=== PATIENT | female | born 1980 | race Caucasian/White ===

== ENCOUNTER 2023-01-13 09:50 | Emergency (ER) | payer OTHER ==
[~2023-01-13] VITALS: Ht 167.6 cm; Wt 63.0 kg
[2023-01-13 09:54] VITALS: BP_SYST 117
--- NOTE | 2023-01-13 09:59 | NUR ---
LEFT HAND PAIN 03/24 SINCE 2 WEEKS AGO, IBUPROFEN,ADVIL, ICE NOT HELPING
--- NOTE | 2023-01-13 10:06 | NUR ---
Patient to ER bed 08 to gown for evaluation. Side rails up.
--- NOTE | 2023-01-13 10:08 | NUR ---
ER at bedside examining patient.
--- NOTE | 2023-01-13 10:14 | NUR ---
Pt BIB self. C/O left thumb pain radiating thru forearm to shoulder. 03/24. left hand toter unable to close without discomfort. cap return less than 3. onset of 2 weeks with no relief. Pt denies trauma to hand. Denies NVD. PERRLA. skin dry and intact. Pt has full ROM to left arm with difficulty grasping.
[2023-01-13] MEDS ORDERED: IBUP-1969 PO (10:55)
[2023-01-13] MEDS ORDERED: TRAM50TA2 PO (10:55)
--- NOTE | 2023-01-13 11:05 | NUR ---
L thumb splint applied for mobilization. pt education given. pt tolerated well. cap return less than 3.
--- NOTE | 2023-01-13 11:09 | NUR ---
Patient given written and verbal discharge instructions and verbalizes understanding. ER MD discussed with patient the results and treatment provided. Patient in stable condition. ID arm band removed. Rx of IBUPROFEN, TRAMADOL. given. Patient educated on pain management and to follow up with PMD. Opportunity for questions provided and answered. Medication side effect fact sheet provided.
[2023-01-13 11:15] VITALS: BP_SYST 117
== END 2023-01-13 11:15 | disposition home or self-care (01) ==
LOC: SED 09:50
DX: M67.834 Other specified disorders of tendon, left wrist (principal); M79.645 Pain in left finger(s); Z79.899 Other long term (current) drug therapy
CPT/HCPCS: 99283

== ENCOUNTER 2023-12-11 15:20 | Emergency (ER) | payer OTHER ==
[~2023-12-11] VITALS: Ht 167.6 cm; Wt 61.7 kg
[2023-12-11 15:20] VITALS: BP_SYST 120; PULSE 93; RESP 18; TEMP 98.3; O2SAT 100
[~2023-12-11 15:20] MED LIST: IBUP-1969 PO; TRAM50TA2 PO
[2023-12-11 17:21] VITALS: BP_SYST 120; PULSE 93; RESP 18; TEMP 98.3; O2SAT 100
[2023-12-11] MEDS ORDERED: IBUP-1969 PO (18:09)
== END 2023-12-11 18:48 | disposition home or self-care (01) ==
LOC: SED 15:20
DX: S10.83XA Contusion of other specified part of neck, initial encounter (principal); R09.89 Other specified symptoms and signs involving the circulatory and respiratory systems; R45.6 Violent behavior; Z79.899 Other long term (current) drug therapy; Y04.8XXA Assault by other bodily force, initial encounter; Y93.89 Activity, other specified; Y92.89 Other specified places as the place of occurrence of the external cause; Y99.8 Other external cause status
CPT/HCPCS: 70490; 81025; 99284